=== PATIENT | male | born 1940 | race Caucasian/White ===

== ENCOUNTER 2016-07-29 21:50 | Inpatient (IN) | payer MEDICARE, BC ==
--- NOTE | ~2016-07-29 | HP ---
History And Physical [facility] [address] [place]. [address] NAME: JANEL VILLAFANA JR : 40 STATUS : ADM IN [facility]#: [id number] AGE: 76 ADM/REG DATE : 07/30/16 MR#: [id number] REPORT SERV DATE: 07/31/16 DICTATED BY: BATOOL ROCHA DATE: 07/30/16 REPORT STATUS : Draft TRANSCRIBED BY: MODMatias DATE: 07/30/16 DATE OF ADMISSION: 07/29/2016 POINT OF ENTRY: [facility] Emergency Department. CHIEF COMPLAINT: Dyspnea on exertion. HISTORY OF PRESENT ILLNESS: Mr. Villafana is a 76-year-old gentleman with a history of squamous cell carcinoma of the neck as well as prostate cancer, who presents to the emergency department today with five-day history of dyspnea on exertion. The patient is a fairly active gentleman, who frequently rides his bike as high as 100 miles in a day over the last few months. Last Friday approximately eight days ago, he rode 20 miles without any difficulties. Beginning on Friday while he was on a hike in on a very small incline, which normally should not cause him any troubles, he noted some profound dyspnea on exertion, which is very unusual given his degree of exercise tolerance. The dyspnea on exertion resolved with rest. Over the following five days with any amount of significant exertion, the patient became very winded and short of breath and had to stop and rest. The patient denies any associated chest pain, palpitations, cough, wheezing, or sputum production. Denies any shortness of breath at rest or orthopnea or PND. The patient saw Dr. Carlin in office today and at that time, troponin was noted to be mildly elevated at 0.06 as well as had an abnormal EKG, which I was unable to see the details of; therefore, he was referred to the emergency department for further evaluation and management. Initial evaluation in the emergency department notable for hemodynamically stable vital signs. In fact, he is bradycardic on telemetry and not requiring any oxygen on room air. His troponin also was mildly elevated at 0.06. His D-dimer was massively elevated at 15.82. CTA of the chest was done, which showed a fairly heavy burden of incomplete obstructing pulmonary emboli starting in the distal right and left main pulmonary arteries with extension into the right middle lobe, right lower lobe, left upper lobe, and left lower lobe segmental arteries. The patient was started on a heparin infusion and was admitted to the Hospitalist Service. The patient deny any recent fevers, night sweats, chills, chest pain, palpitations, cough, sputum production, wheezing, abdominal pain, nausea, vomiting, diarrhea, constipation, dysuria, melena, hematochezia, hemoptysis, or hematemesis. He denied any lower extremity edema or pain up until arrival in the ER today and started to notice some asymmetric left greater than right lower extremity edema, which again is new and unusual for him. The patient also denies any recent trauma, prolonged immobilization, recent major surgeries. REVIEW OF SYSTEMS: Comprehensive review of system otherwise negative, unless listed in history of present illness. History And Physical [address] [address] NAME: JANEL VILLAFANA JR : 40 STATUS : ADM IN [facility]#: [id number] AGE: 76 ADM/REG DATE : 07/30/16 MR#: [id number] REPORT SERV DATE: 07/31/16 DICTATED BY: BATOOL ROCHA DATE: 07/30/16 REPORT STATUS : Draft TRANSCRIBED BY: JOHN DATE: 07/30/16 PREVIOUS MEDICAL HISTORY: 1. Squamous cell carcinoma of the neck status post lymph node excision, status post chemotherapy and radiation, now reportedly in remission. 2. 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 3. H pylori status post treatment. 4. Prostate cancer status post brachytherapy. SURGICAL HISTORY: 1. Appendectomy. 2. Squamous cell lymph node, neck, excision. 3. Right ventral tongue excision for leukoplakia. ALLERGIES: NO KNOWN DRUG ALLERGIES. HOME MEDICATIONS: Takes no medications. SOCIAL HISTORY: Denies any tobacco, alcohol, or illicits. Again is a very active elderly gentleman, exercises frequently with good exercise tolerance. FAMILY MEDICAL HISTORY: Mother at 104 of old age. Father in his 80s of unknown causes. Sibling of complication of COPD, was a smoker. No known immediate or extended family history of venothromboembolic disease. LABORATORIES AND IMAGIN. White count is 6.6, hemoglobin is 13.3, hematocrit is 40.3, platelet count is 113. INR 1.2. D-dimer is 15.82. 2. Sodium is 140, potassium 4.3, chloride 104, carbon dioxide 28, BUN 24, creatinine 1.25, glucose is 126, calcium is 8.3. 3. CPK is 83, CK-MB is 2.3, troponin is 0.06, BNP is 204.2. 4. Chest x-ray per my review shows no acute cardiopulmonary abnormality. 5. EKG per my review shows sinus bradycardia with heart rates in the 50s. Does have positive S1Q3T3 pattern suggestive of RV strain. 6. CTA of the chest shows a fairly heavy burden of incompletely obstructing pulmonary emboli of the distal right and left main pulmonary arteries with extension into the segmental arteries of the right middle, right lower lobe, left upper lobe, and left lower lobe. PHYSICAL EXAMINATION: VITAL SIGNS: Temperature is 99.2 degrees Fahrenheit, pulse is 60, respirations 22, saturating 97% on room air, and blood pressure 153/86. GENERAL: The patient is awake, alert, in no distress, resting comfortably in bed. He is a well-developed, well-nourished, elderly male, who appears younger than stated age. HEENT: Atraumatic and normocephalic. Moist mucous membranes. Pupils are equal, round, reactive to light and accommodation. Extraocular movements intact. No scleral icterus. NECK: No jugular venous distention. No carotid bruits. CARDIAC: Bradycardic rate. Regular rhythm. No murmurs or gallops. Normal S1 and S2. LUNGS: Clear to auscultation bilaterally. No wheezes, rhonchi, or crackles. History And Physical [address] [address] NAME: JANEL VILLAFANA : 40 STATUS : ADM IN [facility]#: [id number] AGE: 76 ADM/REG DATE : 07/30/16 MR#: [id number] REPORT SERV DATE: 07/31/16 DICTATED BY: BATOOL ROCHA DATE: 07/30/16 REPORT STATUS : Draft TRANSCRIBED BY: MODL DATE: 07/30/16 ABDOMEN: Soft, nontender, and nondistended with good bowel sounds. No rebound, guarding, or rigidity. EXTREMITIES: Left lower extremity is mildly swollen and slightly erythematous compared to the right lower extremity. I do not appreciate any palpable cords. SKIN: Warm and dry, except for noted above. PSYCH: Affect appropriate. NEURO: Alert and oriented x3. Cranial nerves II through XII grossly intact. Speech is normal. Gait not assessed. ASSESSMENT: Mr. Villafana is a 76-year-old gentleman, who presents with a five-day history of dyspnea on exertion as well as recent development of left lower extremity swelling and discomfort and found to have acute bilateral pulmonary emboli. The patient's only obvious risk factors at this time include a history of malignancy, however, it appears that the patient is being closely monitored by his various specialists. PROBLEM LIST: 1. Acute bilateral pulmonary emboli. 2. Presumed left lower extremity DVT. 3. Dyspnea on exertion. 4. History of squamous cell carcinoma of the neck. 5. History of prostate cancer. PLAN: 1. Acute bilateral pulmonary emboli. We will initially place the patient on a heparin infusion given extensive burden. We will check echocardiogram in the morning to assess for possible RV strain. We will check one more troponin value given his mildly elevated troponin values, both here as well as at his outside facility. Again, the patient does not seem to have any obvious risk factors, except for his known history of malignancy. I will defer to the patient's primary care physician as well as various specialists, who are already monitoring his various malignancies for any further necessary workup. We will also defer decision on whether to check genetic predisposition studies to his primary care physician, Dr. Carlin. 2. Presumed left lower extremity DVT. We will follow up with lower extremity Dopplers, but the patient will already be on a heparin infusion. 3. Dyspnea on exertion secondary to acute bilateral pulmonary emboli. The patient appears to be very active gentleman, however, we will follow up with an echocardiogram to assess for any RV strain. 4. DVT prophylaxis. The patient is on heparin infusion. CODE STATUS: The patient wished to be full code. JCB/MODL Batool Rocha MD History And Physical [address] [place]. [address] NAME: JANEL VILLAFANA JR : 40 STATUS : ADM IN PAT#: [id number] AGE: 76 ADM/REG DATE : 07/30/16 MR#: [id number] REPORT SERV DATE: 07/31/16 DICTATED BY: BATOOL ROCHA DATE: 07/30/16 REPORT STATUS : Draft TRANSCRIBED BY: MODL DATE: 07/30/16 / [id number] CC: Levar Carlin M.D.
--- NOTE | ~2016-07-29 | DS ---
Discharge Summary [facility] [address] [place]. [address] NAME: KEITH VILLAFANA JR : 40 STATUS : DIS IN PAT#: [id number] AGE: 76 ADM/REG DATE : 07/30/16 MR#: [id number] REPORT SERV DATE: 08/05/16 DICTATED BY: KESHA SLOAN DATE: 08/02/16 REPORT STATUS : Draft TRANSCRIBED BY: JOHN DATE: 08/02/16 ADMISSION DATE: 07/30/2016 DISCHARGE DATE: 08/02/2016 DIAGNOSES OF DISCHARGE: 1. Acute bilateral pulmonary embolism, nonobstructive. 2. Bilateral lower extremity deep venous thrombosis on venous ultrasound common femoral to popliteal on the left and bilateral calf veins. 3. History of squamous cell carcinoma of the neck. 4. History of prostate cancer with elevated PSA. CONSULTANTS ON THE CASE: Vascular. PROCEDURES DONE DURING THIS HOSPITALIZATION: None. TESTS DONE DURING THIS HOSPITALIZATION: Include: 1. CTA of the chest with PE protocol performed on 07/29/2016, which showed fairly heavy burden but incomplete obstruction of the bilateral pulmonary emboli at distal right and left main pulmonary arteries, extended into the right middle and lower lobe and left upper and left lower lobe, and minor atelectasis, and some small renal cortical cyst of the upper pole lobe. 2. Venous duplex ultrasound of the bilateral lower extremities. Extensive DVT on the left as well as bilateral calf thrombosis, and a 2D echo has been done as well during these hospitalization. It shows the patient has a normal left ventricular ejection fraction. There is a borderline normal RV size and systolic function with no evidence of RV strain. Mild to moderate pulmonary hypertension. HOSPITAL COURSE: This is a very pleasant 76-year-old gentleman, patient of Dr. Levar Carlin, his primary care provider, presenting to [facility] with dyspnea on exertion. Mr. Villafana has a history of squamous cell carcinoma of the neck as well as prostate cancer, very active gentleman. He rides bike every single day and rides miles without any difficulties. A couple of days prior to admission, he started to have trouble with dyspnea on exertion, which has been very unusual given his degree of exercise tolerance; however, dyspnea resolved at rest. The patient saw his primary care provider, Dr. Carlin, in the office. Troponin has been noted to be slightly elevated and had some abnormal EKG. He came to the emergency room where his troponin has been just mildly elevated, but D-dimer was massively elevated. A CTA of the chest showed fairly heavy burden on incomplete obstruction of the pulmonary arteries. The patient has been started on heparin drip, and Hospitalist Service has been consulted for admission for further evaluation and treatment. Again for further details, please see history and physical exam of Dr. Mango Diehl. The patient has been admitted with acute bilateral pulmonary emboli. Initially, he has been placed on heparin infusion giving the extensive burden of the clots. The patient had also venous duplex ultrasound which showed fairly extensive bilateral DVTs. He has been seen in consult by the vascular surgery who did not recommend any endovascular intervention therapy with anticoagulation as the patient has been started his echo, did not show any evidence of RV strain. The patient has had a history of malignancy with mildly elevated PSA. We will Discharge Summary [address] [place]. [address] NAME: MICAELAKEITHERICA MCCLELLAND JR : 40 STATUS : DIS IN PAT#: [id number] AGE: 76 ADM/REG DATE : 07/30/16 MR#: [id number] REPORT SERV DATE: 08/05/16 DICTATED BY: KESHA SLOAN DATE: 08/02/16 REPORT STATUS : Draft TRANSCRIBED BY: JOHN DATE: 08/02/16 repeat the PSA during this hospitalization, and we will refer that to his primary care provider, Dr. Carlin, as well as the other specialists who are already monitoring and following him for his various malignancies for any further necessary workup as deemed. We will also defer decision on whether to check a hypercoagulable predisposition to his primary care provider, Dr. Carlin. Again, the patient has been kept a few days on IV heparin. His swelling of the left lower extremity improved significantly, and he has been transitioned to oral anticoagulation at discharge. On 08/02/2016, the patient the patient has been ready for discharge. The patient is going to be discharged home on Xarelto 15 mg p.o. b.i.d. for 21 days after which he should be started on Xarelto 20 mg p.o. q.h.s. I suspect that the patient will need anticoagulation for the rest of his life. We will make again a followup appointment with Dr. Carlin, his primary care provider, in one week after discharge. This has been discussed extensively with the patient. All the questions have been answered in full. I have spent more than 30 minutes at discharging the patient, Keith Villafana, medication reconciliation, discharge summary, discharge instructions, and written prescriptions as well. CF/MODL Kesha Sloan M.D. / [id number] CC: Lazaro Mackey M.D.
[2016-07-29 17:27] LABS: ALBUMIN 3.4 G/DL (3.5-5.0); CALCIUM, SERUM 8.1 MG/DL (8.5-10.4); CHLORIDE, SERUM 105 MMOL/L (96-112); CO2 (CARBON DIOXIDE) 27 MMOL/L (24-34); CPK 83 U/L (0-200); CREATININE 1.26 MG/DL (0.70-1.30); GFR AFRICAN AMERICAN 64 ML/MIN (>=60); GFR NON AFRICAN AMERICAN 55 ML/MIN (>=60); GLUCOSE, SERUM 101 MG/DL (60-99); PHOSPHORUS, SERUM 3.2 MG/DL (2.5-4.5); POTASSIUM, SERUM 4.6 MMOL/L (3.5-5.3)
[2016-07-29 17:39] LABS: BUN (BLOOD UREA NITROGEN) 23 MG/DL (6-23); SODIUM, SERUM 141 MMOL/L (135-148)
[2016-07-29 17:56] LABS: CK-MB 2.3 NG/ML
[2016-07-29 17:57] LABS: TROPONIN I 0.06 NG/ML (<0.05)
[2016-07-29 21:04] LABS: BASOPHILS 0.5 %; BASOPHILS ABSOLUTE 0.03 10/3/uL (0.0-0.16); EOSINOPHILS 5.9 %; EOSINOPHILS ABSOLUTE 0.39 10/3/uL (0.0-0.53); ER CBC TAT 0 Hrs 08 Mins; HEMATOCRIT 40.3 % (40.0-51.0); HEMOGLOBIN 13.3 g/dL (13.6-17.8); IMMATURE GRANULOCYTES 0.2 %; IMMATURE GRANULOCYTES ABSOLUTE 0.01 10/3/uL (0.0-0.11); LYMPHOCYTES 26.2 %; LYMPHOCYTES ABSOLUTE 1.73 10/3/uL (0.67-4.30); MEAN CORPUSCULAR HEMOGLOB 30.9 pg (26.0-34.0); MEAN CORPUSCULAR VOLUME 93.5 fL (80-100); MEAN PLATELET VOLUME 9.7 fL (9.2-13.0); MONOCYTES 8.9 %; MONOCYTES ABSOLUTE 0.59 10/3/uL (0.21-1.20); NEUTROPHILS 58.3 %; NEUTROPHILS ABSOLUTE 3.86 10/3/uL (2.02-8.40); PLATELET COUNT 113 10/3/uL (150-400); RBC DISTRIBUTION WIDTH 13.4 % (12.0-16.0); RED CELL COUNT 4.31 10/6/uL (4.7-6.1); WHITE BLOOD CELLS 6.6 10/3/uL (4.5-10.5)
[2016-07-29 21:06] LABS: MANUAL DIFF NO %
[2016-07-29 21:13] LABS: INTERNATIONAL NORMAL RATI 1.2 UNITS (-); PARTIAL THROMBO TIME 27.8 SEC (22.5-37.2); PROTIME (NOT ORD) 15.4 SEC (12.0-14.5)
[2016-07-29 21:18] LABS: BUN (BLOOD UREA NITROGEN) 24 MG/DL (6-23); CALCIUM, SERUM 8.3 MG/DL (8.5-10.4); CHLORIDE, SERUM 104 MMOL/L (96-112); CO2 (CARBON DIOXIDE) 28 MMOL/L (24-34); CREATININE 1.25 MG/DL (0.70-1.30); GFR AFRICAN AMERICAN 64 ML/MIN (>=60); GFR NON AFRICAN AMERICAN 56 ML/MIN (>=60); POTASSIUM, SERUM 4.3 MMOL/L (3.5-5.3); SODIUM, SERUM 140 MMOL/L (135-148)
[2016-07-29 21:20] LABS: CHEST PAIN PROFILE TAT 0 Hrs 24 Mins; GLUCOSE, SERUM 126 MG/DL (60-99); TROPONIN I 0.06 NG/ML (<0.05)
[~2016-07-29 21:50] MED LIST: *DENIES; DUREZOL0.05 % OPH; PROLENSA1.6 ML OPH
[2016-07-29 22:03] LABS: D-DIMER QUANTITATIVE 15.82 ug/mLFEU (< 0.50)
[2016-07-29] MEDS ORDERED: *DENIES (23:54)
[2016-07-30 14:06] LABS: BASOPHILS 0.6 %; BASOPHILS ABSOLUTE 0.03 10/3/uL (0.0-0.16); EOSINOPHILS 6.4 %; EOSINOPHILS ABSOLUTE 0.35 10/3/uL (0.0-0.53); HEMATOCRIT 41.1 % (40.0-51.0); HEMOGLOBIN 13.7 g/dL (13.6-17.8); IMMATURE GRANULOCYTES 0.2 %; IMMATURE GRANULOCYTES ABSOLUTE 0.01 10/3/uL (0.0-0.11); LYMPHOCYTES 19.9 %; LYMPHOCYTES ABSOLUTE 1.08 10/3/uL (0.67-4.30); MEAN CORPUS HGB CONC 33.3 g/dL (32.0-36.0); MEAN CORPUSCULAR HEMOGLOB 30.6 pg (26.0-34.0); MEAN CORPUSCULAR VOLUME 91.9 fL (80-100); MEAN PLATELET VOLUME 9.9 fL (9.2-13.0); MONOCYTES 11.8 %; MONOCYTES ABSOLUTE 0.64 10/3/uL (0.21-1.20); NEUTROPHILS 61.1 %; NEUTROPHILS ABSOLUTE 3.32 10/3/uL (2.02-8.40); PLATELET COUNT 122 10/3/uL (150-400); RBC DISTRIBUTION WIDTH 13.6 % (12.0-16.0); RED CELL COUNT 4.47 10/6/uL (4.7-6.1); WHITE BLOOD CELLS 5.4 10/3/uL (4.5-10.5)
[2016-07-30 14:07] LABS: MANUAL DIFF NO %
[2016-07-30 14:20] LABS: BUN (BLOOD UREA NITROGEN) 20 MG/DL (6-23); CALCIUM, SERUM 8.6 MG/DL (8.5-10.4); CHLORIDE, SERUM 103 MMOL/L (96-112); CO2 (CARBON DIOXIDE) 29 MMOL/L (24-34); CREATININE 1.08 MG/DL (0.70-1.30); GFR AFRICAN AMERICAN 77 ML/MIN (>=60); GFR NON AFRICAN AMERICAN 66 ML/MIN (>=60); GLUCOSE, SERUM 112 MG/DL (60-99); POTASSIUM, SERUM 4.7 MMOL/L (3.5-5.3); SODIUM, SERUM 140 MMOL/L (135-148); TROPONIN I 0.04 NG/ML (<0.05)
[2016-07-31 04:24] LABS: BASOPHILS 0.8 %; BASOPHILS ABSOLUTE 0.04 10/3/uL (0.0-0.16); EOSINOPHILS ABSOLUTE 0.37 10/3/uL (0.0-0.53); HEMATOCRIT 39.6 % (40.0-51.0); HEMOGLOBIN 13.3 g/dL (13.6-17.8); IMMATURE GRANULOCYTES 0.2 %; IMMATURE GRANULOCYTES ABSOLUTE 0.01 10/3/uL (0.0-0.11); LYMPHOCYTES 23.7 %; LYMPHOCYTES ABSOLUTE 1.26 10/3/uL (0.67-4.30); MANUAL DIFF NO %; MEAN CORPUS HGB CONC 33.6 g/dL (32.0-36.0); MEAN CORPUSCULAR HEMOGLOB 31.4 pg (26.0-34.0); MEAN CORPUSCULAR VOLUME 93.4 fL (80-100); MEAN PLATELET VOLUME 9.6 fL (9.2-13.0); MONOCYTES 8.5 %; MONOCYTES ABSOLUTE 0.45 10/3/uL (0.21-1.20); NEUTROPHILS 59.8 %; NEUTROPHILS ABSOLUTE 3.18 10/3/uL (2.02-8.40); PLATELET COUNT 122 10/3/uL (150-400); RBC DISTRIBUTION WIDTH 13.3 % (12.0-16.0); RED CELL COUNT 4.24 10/6/uL (4.7-6.1); WHITE BLOOD CELLS 5.3 10/3/uL (4.5-10.5)
[2016-07-31 04:37] LABS: BUN (BLOOD UREA NITROGEN) 20 MG/DL (6-23); CALCIUM, SERUM 8.3 MG/DL (8.5-10.4); CHLORIDE, SERUM 108 MMOL/L (96-112); CO2 (CARBON DIOXIDE) 25 MMOL/L (24-34); GFR AFRICAN AMERICAN 84 ML/MIN (>=60); GFR NON AFRICAN AMERICAN 73 ML/MIN (>=60); GLUCOSE, SERUM 106 MG/DL (60-99); POTASSIUM, SERUM 4.3 MMOL/L (3.5-5.3); SODIUM, SERUM 142 MMOL/L (135-148)
[2016-08-01 06:24] LABS: BASOPHILS 0.7 %; BASOPHILS ABSOLUTE 0.04 10/3/uL (0.0-0.16); EOSINOPHILS 7.4 %; EOSINOPHILS ABSOLUTE 0.41 10/3/uL (0.0-0.53); HEMATOCRIT 40.2 % (40.0-51.0); HEMOGLOBIN 13.3 g/dL (13.6-17.8); IMMATURE GRANULOCYTES 0.2 %; IMMATURE GRANULOCYTES ABSOLUTE 0.01 10/3/uL (0.0-0.11); LYMPHOCYTES 24.3 %; LYMPHOCYTES ABSOLUTE 1.34 10/3/uL (0.67-4.30); MANUAL DIFF NO %; MEAN CORPUS HGB CONC 33.1 g/dL (32.0-36.0); MEAN CORPUSCULAR HEMOGLOB 31.1 pg (26.0-34.0); MEAN CORPUSCULAR VOLUME 93.9 fL (80-100); MEAN PLATELET VOLUME 9.8 fL (9.2-13.0); MONOCYTES 12.3 %; MONOCYTES ABSOLUTE 0.68 10/3/uL (0.21-1.20); NEUTROPHILS 55.1 %; NEUTROPHILS ABSOLUTE 3.04 10/3/uL (2.02-8.40); PLATELET COUNT 130 10/3/uL (150-400); RBC DISTRIBUTION WIDTH 13.3 % (12.0-16.0); RED CELL COUNT 4.28 10/6/uL (4.7-6.1); WHITE BLOOD CELLS 5.5 10/3/uL (4.5-10.5)
[2016-08-01 06:36] LABS: CALCIUM, SERUM 8.4 MG/DL (8.5-10.4); CHLORIDE, SERUM 108 MMOL/L (96-112); CO2 (CARBON DIOXIDE) 26 MMOL/L (24-34); GFR AFRICAN AMERICAN 84 ML/MIN (>=60); GFR NON AFRICAN AMERICAN 73 ML/MIN (>=60); GLUCOSE, SERUM 97 MG/DL (60-99); POTASSIUM, SERUM 4.1 MMOL/L (3.5-5.3); SODIUM, SERUM 142 MMOL/L (135-148)
[2016-08-01 06:37] LABS: BUN (BLOOD UREA NITROGEN) 16 MG/DL (6-23)
[2016-08-02 06:38] LABS: BASOPHILS 0.8 %; BASOPHILS ABSOLUTE 0.04 10/3/uL (0.0-0.16); EOSINOPHILS 6.9 %; EOSINOPHILS ABSOLUTE 0.34 10/3/uL (0.0-0.53); HEMOGLOBIN 12.6 g/dL (13.6-17.8); IMMATURE GRANULOCYTES 0.2 %; IMMATURE GRANULOCYTES ABSOLUTE 0.01 10/3/uL (0.0-0.11); LYMPHOCYTES 22.3 %; MEAN CORPUS HGB CONC 33.2 g/dL (32.0-36.0); MEAN CORPUSCULAR HEMOGLOB 30.4 pg (26.0-34.0); MEAN CORPUSCULAR VOLUME 91.8 fL (80-100); MEAN PLATELET VOLUME 9.5 fL (9.2-13.0); MONOCYTES 9.7 %; MONOCYTES ABSOLUTE 0.48 10/3/uL (0.21-1.20); NEUTROPHILS 60.1 %; NEUTROPHILS ABSOLUTE 2.97 10/3/uL (2.02-8.40); PLATELET COUNT 142 10/3/uL (150-400); RBC DISTRIBUTION WIDTH 13.5 % (12.0-16.0); RED CELL COUNT 4.14 10/6/uL (4.7-6.1); WHITE BLOOD CELLS 4.9 10/3/uL (4.5-10.5)
[2016-08-02 06:44] LABS: MANUAL DIFF NO %
[2016-08-02 06:51] LABS: BUN (BLOOD UREA NITROGEN) 17 MG/DL (6-23); CALCIUM, SERUM 8.3 MG/DL (8.5-10.4); CHLORIDE, SERUM 108 MMOL/L (96-112); CO2 (CARBON DIOXIDE) 25 MMOL/L (24-34); GFR AFRICAN AMERICAN 84 ML/MIN (>=60); GFR NON AFRICAN AMERICAN 73 ML/MIN (>=60); GLUCOSE, SERUM 99 MG/DL (60-99); POTASSIUM, SERUM 4.2 MMOL/L (3.5-5.3); SODIUM, SERUM 140 MMOL/L (135-148)
[2016-08-02] MEDS ORDERED: XARELTO20 MG PO (09:46)
== END 2016-08-02 11:57 | disposition home or self-care (01) | DRG 176 ==
LOC: ER 21:50 → 5NO 07-30 00:51
PROVIDERS: Emergency Medicine; Internal Medicine
DX: I26.99 Other pulmonary embolism without acute cor pulmonale (principal); I82.412 Acute embolism and thrombosis of left femoral vein; Z85.89 Personal history of malignant neoplasm of other organs and systems; Z85.46 Personal history of malignant neoplasm of prostate
CPT/HCPCS: 71010; 71020; 71275; 80048; 80069; 82550; 82553; 83735; 83880; 84153; 84484; 85025; 85379; 85610; 85730; 93005; 93970; 94640; 99285; A9270-GY; C8929; G0463; Q9957; Q9967